=== PATIENT | male | born 1990 | race African-American/Black ===

== ENCOUNTER 2025-03-24 01:32 | Emergency (ER) | payer MEDICAID ==
[~2025-03-24] VITALS: Ht 182.9 cm; Wt 136.0 kg
[2025-03-24 01:40] VITALS: O2SAT 99
[2025-03-24] MEDS: IBUPROFEN 600MG TABLET PO ONE (03:59)
[2025-03-24] MEDS: BACITRACIN 14GM TUBE TOP ONE (04:00)
[2025-03-24] MEDS: TETANUS, DIPHTHERIA, PERTUSSIS VAC/PF 0.5ML (>10YR OLD) IM ONE (04:01)
[2025-03-24 06:06] VITALS: BP 154/89; PULSE 73; RESP 18; TEMP 36.7; O2SAT 98
[2025-03-24] MEDS ORDERED: IBUP-1455 MT (06:08)
[2025-03-24] MEDS ORDERED: BACI28OI9 TP (06:08)
== END 2025-03-24 06:15 | disposition home or self-care (01) ==
LOC: ER 01:32
DX: S40.812A Abrasion of left upper arm, initial encounter (principal); S80.212A Abrasion, left knee, initial encounter; I10 Essential (primary) hypertension; Z00.00 Encounter for general adult medical examination without abnormal findings; X58.XXXA Exposure to other specified factors, initial encounter; Y93.55 Activity, bike riding; Y92.89 Other specified places as the place of occurrence of the external cause; Y99.8 Other external cause status; Z23 Encounter for immunization
CPT/HCPCS: 73120; 73560; 90715; 90471; 99284; Z7610; A6449